=== PATIENT | male | born 1970 | race Caucasian/White ===

== ENCOUNTER → 2017-09-22 16:15 | Outpatient (CLI) | payer BC, SELFPAY ==
[2017-09-22 18:17] LABS: ALB/GLOB Ratio 1.2 RATIO (0.9-2.4); AST(SGOT) 27 U/L (15-37); Alanine Aminotransfer ALT/SGPT 26 U/L (16-61); Albumin, Serum 3.9 g/dL (3.2-5.0); Alkaline Phosphatase 43 U/L (45-117); Anion Gap 8 (5-15); BUN 17 mg/dL (7-18); BUN/Creat Ratio 14.7 RATIO (10-20); Calcium,Total 8.8 mg/dL (8.5-10.1); Chloride 103 mmol/L (98-107); Creatinine, Serum 1.16 mg/dL (0.70-1.30); EST Glomerular Filtration Rate 71 mL/min (>60); Est Glom Filt Rate - Afr Amer 86 mL/min (>60); Globulin 3.3 g/dL (2.2-4.2); Glucose 87 mg/dL (74-106); Potassium 4.1 mmol/L (3.5-5.1); Protein, Total 7.2 g/dL (6.4-8.2); Sodium Level 140 mmol/L (136-145)
== END ==
PROVIDERS: Family Provider Family Medicine; PCP Family Medicine; Visit Provider Family Medicine
DX: B35.1 Tinea unguium (principal)
CPT/HCPCS: 36415; 80053

== ENCOUNTER 2020-04-12 06:18 | Day surgery (SDC) | payer BC, SELFPAY ==
[2020-04-12 07:01] VITALS: BP 121/71; PULSE 51; RESP 16; TEMP 36.4; O2SAT 100; BMI 29.6
--- NOTE | 2020-04-12 07:01 | HP.PCM_ITS ---
History of Present Illness Date of Admission: 04/12/20 The patient is a 50 year old M who presents for screening colonoscopy. He has never had a colonoscopy. Past Medical/Surgical History - Planned Operation Planned Operative Procedure/s: cscope open access Date of Operative Procedure: 04/12/20 Permit Signed: No S.O.S: No Is This Patient Having a Total Joint: No - Previous Hospitalizations/Surgeries HX Hospitalizations: No HX of Surgeries: dental work 03/2020 Any Problems With Anesthesia: Yes - awakened during dental work You/Your Family Experience Fever (Hyperthermia) With Anes: No Cholinesterase deficiency: No - Cardiovascular Hx Chest Pain within Last 2 months: No Hx of Irregular Heartbeat and/or Afib: No Hx Heart Attack: No Hx Congestive Heart Failure: No Hx Rheumatic Fever: No Hx Hypertension: No Hx Internal Defibrillator: No Hx Pacemaker: No Hx Cardiac Catheterization: No Hx Cardiac Surgery/Stents/Etc.: No Hx Stress Test: No HX Edema: No Hx Pain in Legs when Walking/Leg Cramps: No - Respiratory Chronic Cough: No HX of Shortness of Breath: No Hoarseness: No Hx Chronic Obstructive Pulmonary Disease (COPD): No Hx Asthma: No Hx Emphysema: No Hx Sleep Apnea: No Hx Oxygen Use at Home: No Hx Respiratory Tract Infection/Cold (presently): No Do You Snore Loudly (louder than talking or can be heard): No Do You Often Feel Tired/ Fatigued/ Sleepy Dring Daytime?: No Has Anyone Observed You Stop Breathing During Sleep?: No Result (for STOP score): Negative Hx Smoking: No Smoking Status: Never smoker - Gastrointestinal Hx Gastroesophageal Reflux: No Hx Gastrointestinal Disorders: No Hx Gastrointestinal Bleed: No Hx Ulcer: No Hx Hiatal Hernia: No Difficulty Chewing/Swallowing: No Recent Onset of Swallowing Problems: No Special diet followed at home: No Hx Unplanned Weight Loss of 20#: No HX Unplanned Weight Gain of 20#: No - Neurological Hx Seizures: No HX Syncope/Blackout Spells/Unconsciousness: No Hx CVA/Stroke: No Hx Transient Ischemic Attacks (TIA): No Hx Multiple Sclerosis: No Hx Parkinson's Disease: No Hx Head/Neck Injury: No Hx Headaches: No Hx Back Injury/Pain: No Recent Onset of Speech Difficulty: No Restless Legs: No Does patient have nerve stimulator: No Patient instructed to have device shut off: No Rep notified?: No - Blood Disorder Hx Leukemia: No Bleeding Tendencies: No Hx Deep Vein Thrombosis: No Hx High Cholesterol: No Blood Transmitted Disease: No Hx Hepatitis: No Hx Cirrhosis: No Hx Anemia: No Hx Blood Disorders: No - Genitourinary Hx Renal Disease: No - Musculoskeletal Hx Arthritis: No Hx Rheumatoid Arthritis: No Hx Gout: No Recent Onset of an Orthopedic Problem: No - Endocrine Hx Diabetes: No Thyroid Disease: No Hx Steroid Therapy: No - Psycho/Social Hx Substance Use: No Hx Alcohol Use: Yes - social Hx Anxiety: No Hx Depression: No Mental Illness: No Hx Dementia: No - Miscellaneous Hx Cancer: No Recent Exposure to Contagious Disease: No Active MRSA: No Hx of C-Diff: No Any Loose Teeth: No Allergies No Known Allergies Allergy (Verified 03/31/20 11:30) - Discharge Is Pt Admitted From a Penitentiary, or a Senior Living: No After D/C, Where Do you Plan to Go: Return Home - Physical Exam General: Alert, Oriented x3 Lungs: Clear to auscultation Cardiovascular: Regular rate, Regular Rhythm, No murmurs Abdomen: Bowel Sounds Present, Soft, Non Tender, Non-Distended Assessment/Plan Plan will be to perform a colonoscopy. Surgery Risks - Colonoscopy Risks Include but are not Limited To: Risks include but are not limited to: Bleeding, perforation requiring further surgery, inability to complete colonoscopy requiring barium enema.
[2020-04-12] MEDS: Lactated Ringers 1,000 ML 100 ML IV (07:12)
[2020-04-12 07:50] VITALS: BP 103/72; BP 121/71; PULSE 61; RESP 16; TEMP 36.5; O2SAT 98
--- NOTE | 2020-04-12 07:50 | OP.CCLET_ITS ---
04/12/2020 Rupesh Mayo MD [address] [id number] Re : Colonoscopy procedure for José Noonan Dear Dr. Mayo This procedure was performed on Sunday, April 12, 2020. My impressions and recommendations are as follows: Impressions : - The examined portion of the ileum was normal. - The entire examined colon is normal. No specimens collected. - Non-bleeding internal hemorrhoids. - The examination was otherwise normal. Recommendations : - Discharge patient to home. - Resume previous diet. - Continue present medications. - Repeat colonoscopy in 10 years for screening purposes. - Return to primary care physician at appointment to be scheduled. My findings are described in the full procedure note, which is enclosed. If I can be of further assistance, please feel free to contact me at Doctor phone number(s): , Fax: [phone], Work: . Sincerely, MD Derek Champion MD 04/12/2020 7:49:27 AM This report has been signed electronically.
--- NOTE | 2020-04-12 07:50 | OP.COLON_ITS ---
Patient Name: José Noonan Procedure Date: 04/12/2020 7:06 AM Date of : 1970 Age: 50 Procedure: Colonoscopy Indications: Screening for colorectal malignant neoplasm Providers: Derek Hutchins MD Referring MD: Rupesh Mayo MD Medicines: See the Anesthesia note for documentation of the administered medications Patient Profile: This is a 50 year old male. Refer to note in patient chart for documentation of history and physical. Last Colonoscopy: none. The patient's first colonoscopy is today. Complications: No immediate complications. Procedure: Pre-Anesthesia Assessment: - Prior to the procedure, a History and Physical was performed, and patient medications and allergies were reviewed. The patient's tolerance of previous anesthesia was also reviewed. The risks and benefits of the procedure and the sedation options and risks were discussed with the patient. All questions were answered, and informed consent was obtained. Prior Anticoagulants: The patient has taken no previous anticoagulant or antiplatelet agents. ASA Grade Assessment: II - A patient with mild systemic disease. After reviewing the risks and benefits, the patient was deemed in satisfactory condition to undergo the procedure. After I obtained informed consent, the scope was passed under direct vision. Throughout the procedure, the patient's blood pressure, pulse, and oxygen saturations were monitored continuously. The adult colonoscope was introduced through the anus and advanced to 4 cm into the ileum. The colonoscopy was performed without difficulty. The patient tolerated the procedure well. The quality of the bowel preparation was good. Scope In: 7:34:07 AM Scope Withdrawal Time 0 hours 7 minutes 57 seconds Scope Out: 7:45:26 AM Total Procedure Duration Time 0 hours 11 minutes 19 seconds Findings: The terminal ileum appeared normal. The colon (entire examined portion) appeared normal. No biopsies or other specimens were collected for this exam. Non-bleeding internal hemorrhoids were found during retroflexion. The hemorrhoids were mild and small. The exam was otherwise without abnormality. Impression: - The examined portion of the ileum was normal. - The entire examined colon is normal. No specimens collected. - Non-bleeding internal hemorrhoids. - The examination was otherwise normal. Recommendation: - Discharge patient to home. - Resume previous diet. - Continue present medications. - Repeat colonoscopy in 10 years for screening purposes. - Return to primary care physician at appointment to be scheduled. Procedure Code(s): --- Professional --- 29391, Colonoscopy, flexible; diagnostic, including collection of specimen(s) by brushing or washing, when performed (separate procedure) Diagnosis Code(s): --- Professional --- Z12.11, Encounter for screening for malignant neoplasm of colon K64.8, Other hemorrhoids CPT copyright 2017 [employer]. All rights reserved. 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 MD Derek Champion MD 04/12/2020 7:49:27 AM This report has been signed electronically. Number of Addenda: 0 Note Initiated On: 04/12/2020 7:06 AM
[2020-04-12 07:55] VITALS: BP 115/80; BP 121/71; PULSE 59; RESP 16; O2SAT 97
[2020-04-12 08:00] VITALS: BP 106/77; BP 121/71; PULSE 57; RESP 18; O2SAT 98
[2020-04-12 08:05] VITALS: BP 114/76; BP 121/71; PULSE 58; RESP 16; TEMP 36.6; O2SAT 97
[2020-04-12 08:26] VITALS: BP 121/71
== END 2020-04-12 08:33 | disposition home or self-care (01) ==
LOC: EN 06:21 → AC 06:22
PROVIDERS: Anesthesiology; PCP Family Medicine; Referring Provider Family Medicine; Visit Provider Surgery
PROC: 0DJD8ZZ Inspection of Lower Intestinal Tract, Via Natural or Artificial Opening Endoscopic (ICD-10-PCS; CPT 45378; principal; 2020-04-12 07:25)
DX: Z12.11 Encounter for screening for malignant neoplasm of colon (principal); Z11.59 Encounter for screening for other viral diseases; K64.8 Other hemorrhoids
CPT/HCPCS: 45378; 87635; C9803; J7120; J2405; U0003

== ENCOUNTER 2020-09-21 11:28 | Outpatient (RCR) | payer BC, SELFPAY ==
[2020-09-21] MEDS: COVID-19 VACC, MRNA(PFIZER)/PF 30 MCG/0.3 ML SYRINGE IM (12:06)
[2020-10-12] MEDS: COVID-19 VACC, MRNA(PFIZER)/PF 30 MCG/0.3 ML SYRINGE IM (11:48)
== END 2020-09-21 23:59 ==
LOC: IMMUN 11:28
PROVIDERS: PCP Family Medicine; Visit Provider Family Medicine
DX: Z23 Encounter for immunization (principal)
CPT/HCPCS: 0001A; 0002A; 91300

== ENCOUNTER → 2021-03-15 15:02 | Outpatient (CLI) | payer BC, SELFPAY ==
--- NOTE | 2021-03-15 15:06 | RAD_ITS ---
STUDY: X-RAY - SACRUM/COCCYX REASON FOR EXAM: Male, 50 years old. Hip and back pain. TECHNIQUE: view(s) of the sacrum and coccyx were obtained. COMPARISON: None. FINDINGS: Normal bilateral sacroiliac joints. Normal visualized sacral ala and fused sacral bodies. Normal sacrococcygeal junction with a normal angulation. Normal coccygeal segments. Phleboliths. The presacral soft tissue structures are unremarkable. RAD/Sacrum-Coccyx min 2 Views IMPRESSION: No abnormality of the visualized pelvis, sacrum or coccyx. Electronically Signed: Jordy Rodrigez MD at 13:09 EDT , Service support ,
--- NOTE | 2021-03-15 15:06 | RAD_ITS ---
STUDY: X-RAY - PELVIS AND LEFT HIP REASON FOR EXAM: Male, 50 years old. Pain with sitting. TECHNIQUE: 3 views of the pelvis and hip. COMPARISON: None. FINDINGS: There is a non-specific bowel gas pattern. Phleboliths. Normal bilateral iliac wings, sacroiliac joints and visualized sacrum. Normal bilateral superior and inferior pubic rami. Normal pubic symphysis. Normal bilateral ischial tuberosities. Normal visualized femoral head. Normal acetabulum. Normal hip joint. RAD/HIP, UNI W/ Pelvis 2-3 Views IMPRESSION: No abnormality identified. Electronically Signed: Jordy Rodrigez MD at 13:09 EDT , Service support ,
== END ==
PROVIDERS: PCP Family Medicine; Referring Provider Family Medicine; Visit Provider Family Medicine
DX: M25.552 Pain in left hip (principal)
CPT/HCPCS: 72220; 73502

== ENCOUNTER 2021-04-09 08:00 | Outpatient (RCR) | payer BC, SELFPAY ==
--- NOTE | 2021-03-26 08:47 | HP.PTEVAL_ITS ---
Patient's Visit Information ASHLEY FRANKLIN is a 50 year old M referred to Physical Therapy by Dr. Sole Rivers MD with a diagnosis of sciatica. Date of Evaluation: 03/26/21 Physical Therapist: MIKY GarcíaT, OCS, CSCS - Visit Plan Frequency: 1-2x /Week Duration: 2-4 Weeks Plan: Likely postural syndrome and appropriate for 1-2x/week for 4 weeks. Start weekly for mat based core strength next session and ensure sitting posture, improving extension , and limited sitting long periods. Then progress the next week to general ex for all large muscle groups focussing posture and pt can do then on bowflex, db which he has at home. - Subjective Sitting causes pain in LB and works down in L groin if sits too long. Reclining back is not a problem. Walking is not a problem, sleeping is not a problem. Will hang around for a while if sittiing too long. This pain started a year or so insidiously. 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 Not effecting activities at all. Still sits alot but is trying to stand at times to do his research. Driving is worse and starting to feel it this am. No ex specific to low back. Had stopped ex to see if it would help but it did not. Denies numbness, tingling or weakness. Just dull annoying and is stiff wehn he gets up. - Pain LBp and L groin Pain Intensity (Out of 10): 1 Pain Intensity Range: 0, 3 - Objective Posture is flat lordosis and tends to have kyphsis in T/S, forward head. L/S multi segmental ROM max limited in extensionm full flexiona dn SB, no pain with any movmement. PA pressure not painful. reflexes 2/3 patella and achilles. Sensation WNL to gross light touch in LE. Strength LE 4+/5t in hips, knees, and ankles without pain. Core strength 4/5 abd and spinal extendors. - slump. - SLR. - AMARILIS, -FADDIR, symmetrical hip ROM without pain. Walks and transfers are normal today without pain as are steps reciprocally. - Balance/Special Test Scores Oswestry Low Back Score: 4 - Goals Goal 1:: Sit with appropriate posture in therapy and not for more than 30 minutes at t time in the community to minimze pain Goal Time Frame: 4-6 Weeks Goal 2:: LBP abolished 100% Goal Time Frame: 4-6 Weeks Goal 3:: Pt able to sit and do work without noticing increasing discomfort. Goal Time Frame: 4-6 Weeks Goal 4:: I appropriate ex to minimize future problems Goal Time Frame: 4-6 Weeks Goal 5:: 1 or less on oswestry Goal Time Frame: 4-6 Weeks - Rehabilitation Potential Physical Therapy Diagnosis: LBP likely postural syndrome Rehabilitation Potential: Good - Anticipated Interventions Patient/Client Instruction: Educate patient on: Condition, Plan of Care For the Purpose of:: To decrease pain, To increase ROM, To improve muscle performance and motor function, To improve ability of physical actions for home/community/work/leisure Therapeutic Exercise to Include: Strength training, Postural training, Flexibilty training, Gait and locomotor training, Passive ROM, Active ROM, Dynamic Lumbar Stabilization For the Purpose of:: To decrease pain, To increase ROM, To improve muscle performance and motor function, To increase tolerance to activity/condition/position, To improve ability of physical actions for fina e/community/work/leisure, To improve gait and locomotor functions Thank you for the opportunity to evaluate your patient. For Medicare and Medicare HMO plans, please review the plan of care and approve it. It will need to be FAXED BACK to us at [phone] for Medicare purposes. For Medicare only, by signing this I certify the plan of care. Please let me know if there are questions or concerns regarding this plan of care. Physician Signature: Date:
--- NOTE | 2021-06-15 08:23 | HP.PTDCNRP_ITS ---
ASHLEY FRANKLIN was seen in my office for initial evaluation on 03/26/21. The following Plan of Care was established for this patient: Initial Frequency: 1-2x /Week Initial Duration: 2-4 Weeks Patient/Client Instruction: Educate patient on: Condition, Plan of Care For the Purpose of:: To decrease pain, To increase ROM, To improve muscle performance and motor function, To improve ability of physical actions for home/community/work/leisure Therapeutic Exercise to Include: Strength training, Postural training, Flexibilty training, Gait and locomotor training, Passive ROM, Active ROM, Dynamic Lumbar Stabilization For the Purpose of:: To decrease pain, To increase ROM, To improve muscle performance and motor function, To increase tolerance to activity/condition/position, To improve ability of physical actions for home/com munity/work/leisure, To improve gait and locomotor functions This patient was last seen in our office 04/09/21. Pertinent comments regarding their Physical therapy will appear below: Pt seen 3 visits and was doing well at last one. He was to f/u 3 weeks later to ensure doing well but did not schedule or attend that visit. I will discontinue him at this time due to nonattendance. At this point I will be discontinuing this patient from physical therapy. I would be happy to see this patient again in the future if found appropriate by the physician. Thank you! Gael Darby, DPT, OCS, CSCS Balance/Gait/Functional tests - Balance/Special Test Scores Oswestry Low Back Score: 4
== END 2021-04-09 19:00 | disposition home or self-care (01) ==
LOC: PT 08:00
PROVIDERS: PCP Family Medicine; Referring Provider Family Medicine; Visit Provider Family Medicine
DX: G57.02 Lesion of sciatic nerve, left lower limb (principal)
CPT/HCPCS: 97110; 97161

== ENCOUNTER 2021-12-18 07:00 | Outpatient (RCR) | payer OTHER, SELFPAY ==
--- NOTE | 2021-11-06 08:27 | HP.PTEVAL ---
Patient's Visit Information ASHLEY FRANKLIN is a 51 year old M referred to Physical Therapy by Dr. Sole Rivers MD with a diagnosis of CERVICAL RADICULOPATHY. Date of Evaluation: 11/06/21 Physical Therapist: Kingsley Lyle PT, Cert MDT, OCS - Visit Plan Frequency: 2x /Week Duration: 3 Weeks Plan: PT INTERVETIONS CERVICAL POSTURAL EX'S,STRENGTHNEING AND MODALTIES TO INCLUDE ICTX 16#-22# [id number] AND PATIENT EDUCATION - Subjective This 51 y/o male presents to physical therapy with cervical radiculopathy left arm. Patient has had cervical radiculopathy ~ 2months . Patient reports in Nov shoot a turk and attempted to lift deer in truck. Eventually symptoms become worse in with paresthesia/tingling in right arm and has pain in right shoulder. Patient was given anti-inflammatory. Aggravating factors constant not specific . Alleviating factors rest. Denies RODRÍGUEZ ,dizziness, nausea . Patient sleeping good. Patient goals to decrease symptoms and alleviate pain. Patient has had x-rays. Patient has h/o cervical radiculopathy right arm seen specialist and maybe epidural injection. 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 SOCIAL: . - Pain Right Hand Pain Intensity (Out of 10): 1 Comment: Numbness - Objective POSTURE: mild forward posture. NEURO: c/o paresthesia/tingling ,reflexes C5-6-7 2/3,mytomes intact. 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 BUE ROM: WNL. MMT: 4/5 GROSSLY. CERVICAL ROM: flexion min loss ,extension min/mod loss, lateral flexion /rotation min loss,retraction protraction WFL - Special Tests C/S Radiculapathy - Left Upper limb tension test: Negative C/S Radiculapathy - Right Upper limb tension test: Negative C/S Radiculapathy - Left Spurlings: Negative C/S Radiculapathy - Right Spurlings: Negative C/S Radiculapathy - Left Cervical distraction: Negative C/S Radiculapathy - Right Cervical distraction: Negative C/S Radiculapathy - Left Relief test: Negative Sharp Lizzy: Negative Vertebral Artery Test: Negative Alar Ligament Test: Negative Cervical Sitting: Protrusion - Mechanical Response: No effect Cervical Sitting: Protrusion - Symptoms During Testing: No effect Cervical Sitting: Protrusion - Symptoms After Testing: No effect Cervical Sitting: Retraction - Mechanical Response: No effect Cervical Sitting: Retraction - Symptoms During Testing: No effect Cervical Sitting: Retraction - Symptoms After Testing: No effect Cervical Sitting: Retraction-Extension - Mechanical Response: No effect Cerv Sitting: Retraction-Extension - Symptoms During Testing: No effect Cerv Sitting: Retraction-Extension - Symptoms After Testing: No effect Cervical Sitting: Sidebend Right - Mechanical Response: No effect Cervical Sitting: Sidebend Right - Symptoms During Testing: No effect Cervical Sitting: Sidebend Right - Symptoms After Testing: No effect Cervical Sitting: Sidebend Left - Mechanical Response: No effect Cervical Sitting: Sidebend Left - Symptoms During Testing: No effect Cervical Sitting: Sidebend Left - Symptoms After Testing: No effect Cervical Sitting: Rotation Right - Mechanical Response: No effect Cervical Sitting: Rotation Right - Symptoms During Testing: No effect Cervical Sitting: Rotation Right - Symptoms After Testing: No effect Cervical Sitting: Rotation Left - Mechanical Response: No effect Cervical Sitting: Rotation Left - Symptoms During Testing: No effect Cervical Sitting: Rotation Left - Symptoms After Testing: No effect Cervical Sitting: Flexion - Mechanical Response: No effect Cervical Sitting: Flexion - Symptoms During Testing: No effect Cervical Sitting: Flexion - Symptoms After Testing: No effect - Balance/Special Test Scores Oswestry Neck Score: 7 - Goals Goal 1:: I with HEP for posture and cervical Goal Time Frame: 4-6 Weeks Goal 2:: Patient improve posture for ADLS' 80% of time for function Goal Time Frame: 4-6 Weeks Goal 3:: Patient to demonstrate 70% improvement with decrease symptoms in right arm to improve function Goal Time Frame: 4-6 Weeks Goal 4:: Patient improve neck to improve neck oswestry by 5 points or > to improve QOL Goal Time Frame: 4-6 Weeks - Rehabilitation Potential Physical Therapy Diagnosis: This patient has cervical radiculopathy with symptoms in right arm with paresthesia/tingling constant and shoulder pain intermittent with symptoms NW/NB with motion testing, positioning ,+ response with cervical traction thus benefit from skilled PT Rehabilitation Potential: Good - Anticipated Interventions Patient/Client Instruction: Educate patient on: Condition, Plan of Care For the Purpose of:: To decrease pain, To increase ROM, To improve muscle performance and motor function, To improve ability to perform ADL's, To increase tolerance to activity/condition/position, To improve performance and independence with ADL's, To improve ability of physical actions for home/community/work/leisure, To improve health of tissue, To decrease soft tissue restriction, To increase flexibility/ROM, To prevent re-injury Therapeutic Exercise to Include: Strength training, Coordination, Postural training, Flexibilty training, Active ROM For the Purpose of:: To decrease pain, To increase ROM, To improve muscle performance and motor function, To improve ability to perform ADL's, To increase tolerance to activity/condition/position, To improve ability of physical actions for home/community/work/leisure, To improve health of tissue, To decrease soft tissue restriction, To increase flexibility/ROM, To prevent re-injury TENS: Yes IF ES: Yes Cryotherapy (ice pack, ice massage): Yes Thermo therapy (hot pack): Yes Ultrasound (thermal/non thermal): Yes For the Purpose of:: To decrease pain, To increase ROM, To improve muscle performance and motor function, To improve ability to perform ADL's, To improve performance and independence with ADL's, To improve ability of physical actions for home/community/work/leisure, To improve health of tissue, To decrease soft tissue restriction, To increase flexibility/ROM, To prevent re-injury Thank you for the opportunity to evaluate your patient. For Medicare and Medicare HMO plans, please review the plan of care and approve it. It will need to be FAXED BACK to us at [phone] for Medicare purposes. For Medicare only, by signing this I certify the plan of care. Please let me know if there are questions or concerns regarding this plan of care. Physician Signature: Date:
--- NOTE | 2022-05-08 10:34 | HP.PTDCSUM ---
It has been my pleasure to treat ASHLEY FRANKLIN referred by Dr. Sole Rivers MD, with the diagnosis of CERVICAL RADICULOPATHY for a total of 6 visit(s). Discharge Date: Please see the following information for a summary of their discharge status. Subjective: Intermittent paresthesia tingling Right Hand Pain Intensity (Out of 10): 0 Right Shoulder Pain Intensity (Out of 10): 0 % Improvement: 20 Objective/Function: POSTURE: mild forward posture. NEURO: c/o tingling fingers. MMT: BUE 4/5. CERVICAL ROM: flexion WFL ,extension min loss,rotation/lateral flexion min loss Goal 1:: I with HEP for posture and cervical Goal 2:: Patient improve posture for ADLS' 80% of time for function Goal 3:: Patient to demonstrate 70% improvement with decrease symptoms in right arm to improve function Goal 4:: Patient improve neck to improve neck oswestry by 5 points or > to improve QOL Plan: RTD MAY NEED DR mri If there are questions or concerns regarding this patient's physical therapy, please feel free to call me at [phone]. Thank you for the referral of this patient. Sincerely, Kingsley Lyle, PT, Cert MDT, OCS Balance/Gait/Functional tests - Balance/Special Test Scores Oswestry Neck Score: 7
== END 2021-12-18 19:00 | disposition home or self-care (01) ==
LOC: PT 07:00
PROVIDERS: PCP Family Medicine; Referring Provider Family Medicine; Visit Provider Family Medicine
DX: M54.12 Radiculopathy, cervical region (principal)
CPT/HCPCS: 97012; 97035; 97110; 97161

== ENCOUNTER → 2025-02-19 | Outpatient (CLI) | payer OTHER, SELFPAY ==
--- OUTSIDE RECORDS SUMMARY | 2025-02-19 07:06 | XMS RPT_ITS | CCD ---
Author Organization [facility] ion Partnership [facility] Care Team Providers Care House Builder Name Role Phone Sole Rivers Attending Unavailable [facility] Unavailable Encounters Encounter Date Encounter Type Care Provider Facility Start: 02-09-2025 Encounter for genera l adult medical examination without abnormal findings [facility] Start: 02-09-2025 ambulatory [facility] Facility: [facility] Immunizations Immunization Date Immunization Notes Care Provider Jose cunningham 10-12-2020 Covid (Pfizer) [facility] Work Phone: 09-21-2020 Covid (Pfizer) [facility] Work Phone: Payers Date Payer Category Payer Self-pay [id number] 2025 Unknown [id number] ANTHJUSTIN [id number] Unknown [id number] Social History Date Type Detail Facility Tobacco smoking stat [facility] Unknown if ever smoked [facility] Work Phone: Start: 1970 Sex Assigned At Male [facility] Work Phone: Evaluation note Note Date & Type Note Facility Evaluation note No assessment information availa ble [facility] Work Phone: Summary Purpose Family History No Family History Records Found Advance Directives No Advanced Directives Records Found Additional Source Comments Goals (unrecognized section and content) Goals may be documented in a n alternate section (unrecognized sect ion and content) No Status Records Found INFORMATION SOURCE (unrecogn ized section and content) DATE CREATED AUTHOR 02/11/2025 [facility] FOR RECORDS PERTAINING TO PATIENTS WHO ARE OR HAVE BEEN ENROLLED IN A CHEMICAL DEPENDENCY/SUBSTANCEABUSE PROGRAM, SOME INFORMATION MAY BE OMITTED. This clinical summary was aggregated from multiple sources. Caution should be exercised in using it in the provision of clinical care. This summary normalizes information from multiple sources, and as a consequence, information in this document may materially change the coding, format and clinical context of patient data. In addition, data may be omitted in some cases. CLINICAL DECISIONS SHOULD BE BASED ON THE PRIMARY CLINICAL RECORDS. [facility] [employer] [facility] provides no warranty or guarantee of the accuracy or completeness of information in this document.
[2025-02-19 08:13] LABS: Hematocrit 45.3 % (40-54); Hemoglobin 14.8 g/dL (13.0-16.5); Immature Granulocytes Count 0.050 X10^3/uL (0.0-0.0); Mean Corp Hgb Conc 32.7 g/dL (32-36); Mean Corpuscular Volume 89.0 fL (80-94); Mean Platelet Vol. 9.9 fl (6.2-12.0); NRBC Flagged by Analyzer 0 % (0-5); Platelet Count 244 K/mm3 (150-450); RBC Distribution Width CV 13.2 % (11.6-14.6); RBC Distribution Width SD 43.0 fl (35.1-43.9); Red Blood Count 5.09 M/mm3 (4.6-6.2); White Blood Count 5.3 K/mm3 (4.4-11.0)
[2025-02-19 09:05] LABS: AST(SGOT) 30 U/L (<=37); Alanine Aminotransfer ALT/SGPT 20 U/L (<=46); Albumin, Serum 4.5 g/dL (3.5-5.0); Alkaline Phosphatase 30 U/L (40-129); Anion Gap 10 (5-15); BUN 18 mg/dL (4-19); BUN/Creat Ratio 18.0 RATIO (10-20); Calcium,Total 9.6 mg/dL (7.6-11.0); Carbon Dioxide 26.3 mmol/L (21.0-32.0); Chloride 102 mmol/L (98-108); Globulin 2.2 g/dL (2.2-4.2); Glucose 88 mg/dL (70-99); PSA,Total- Diagnostic 0.53 ng/mL (0.00-4.00); Potassium 5.0 mmol/L (3.3-5.1)
[2025-02-19 10:29] LABS: Cholesterol 202 mg/dL (<=200); Low Density Lipoprotein Calc. 103 mg/dL; Triglycerides 39 mg/dL; Very Low Density Lipoprotein 8 mg/dL (5-40); cholesterol:hdl ratio screen 2.20
== END | disposition home or self-care (01) ==
LOC: LAB 07:03
PROVIDERS: PCP Family Medicine; Referring Provider Family Medicine; Visit Provider Family Medicine
DX: Z00.00 Encounter for general adult medical examination without abnormal findings (principal)
CPT/HCPCS: 36415; 80053; 80061; 84153; 85025